=== PATIENT | male | born 2005 | race Caucasian/White ===

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

== ENCOUNTER → 2024-05-03 | Outpatient (CLI) | payer BC ==
--- NOTE | 2024-05-04 15:44 | MR ---
INDICATION: Patient age:Male; 18 years old; Reason for study: M54.16 RADICULOPATHY LUMBAR REGION; [facility]. COMPARISONS: MRI lumbar spine 09/13/2022, CT lumbar spine 08/27/2022. TECHNIQUE: Multi planar, multi sequence imaging was performed utilizing: T1-weighted, T2-weighted, a nd turbo inversion recovery imaging of the lumbar spine. The patient was not given contrast. FINDINGS: The lumbar vertebral bodies do have preserved heights and alignment. Disc desiccation at L4-L5 and L5-S1 redemonstrated. No abnormal STIR signal. The conus medullaris and the distal spinal cord do appear unremarkable with regards to their signal intensity and morphology. L1-L2: No significant disc pathology is identified. The spinal canal and neural foramen are patent. L2-L3: No significant disc pathology is identified. The spinal canal and neural foramen are patent. L3-L4: Flattening of the posterior disc without significant central canal stenosis. No disc herniati on. No neural foraminal stenosis. L4-L5: Redemonstration of central disc protrusion superimposed upon a broad-based disc bulge with mil d effacement of the anterior thecal sac. Ligamentum flavum buckling. Bilateral facet arthropathy. Mil d to moderate bilateral neural foraminal narrowing. L5-S1: Demonstration of left paracentral disc extrusion with caudal migration approximately 5 mm. Thi s extends into the left subarticular zone with abutment of the exiting left L5 nerve root. Bilateral facet arthropathy. Mild central canal stenosis. Mild bilateral neural foraminal stenosis The interver tebral disc appears round on its contour posteriorly without significant mass effect upon the thecal sac. Facet joints are enlarged. Neural canals do remain patent. Other significant findings: Incidental horseshoe kidney. IMPRESSION: Overall similar examination with disc herniations at L5-S1 and L4-L5 described above. Similar mild mu ltilevel degenerative disc disease and facet arthropathy lower lumbar spine. [facility], , 05/04/2024 3:42 PM
== END | disposition home or self-care (01) ==
LOC: RADMRIMAIN 15:28
PROVIDERS: ATTEND Neurological Surgery
DX: M51.17 Intervertebral disc disorders with radiculopathy, lumbosacral region (principal); M47.26 Other spondylosis with radiculopathy, lumbar region
CPT/HCPCS: 72148